=== PATIENT | male | born 1955 | race Two or more races ===

== ENCOUNTER 2023-01-16 14:22 | Inpatient (IN) | payer OTHER ==
[2023-01-16 15:37] LABS: BASO % 1.3 % (0-2.0); HEMATOCRIT 24.8 % (35.4-49); HEMOGLOBIN 8.1 GM/dL (11.7-16.9); LYMPH % 9.6 % (8-40); MCHC 32.7 g/dl (32.0-35.9); MEAN CELL VOLUME 91.9 fl (80-96); MEAN PLT VOLUME 7.1 fl (7.5-11.1); MONO % 7.4 % (3.8-10.2); NEUT % 78.7 % (42.8-82.8); PLATELET COUNT 257 10^3/uL (134-434); RBC 2.69 M/mm3 (4.00-5.60); RDW 16.8 % (11.9-15.9); WHITE BLOOD COUNT 5.9 K/mm3 (4.0-10.0)
[2023-01-16 15:44] LABS: INR 1.24 (0.83-1.09); PROTHROMBIN TIME (PATIENT) 14.3 SEC (9.7-13.0)
[2023-01-16 15:47] LABS: ACTIVATED PTT 36.3 SECONDS (25.2-36.5)
[2023-01-16 15:48] LABS: CHLORIDE 99 mmol/L (98-107); SODIUM 134 mmol/L (136-145)
[2023-01-16 15:50] LABS: CALCIUM 8.7 mg/dL (8.5-10.1)
[2023-01-16 15:51] LABS: ALBUMIN 3.2 g/dl (3.4-5.0); CO2 24 mmol/L (21-32); GLUCOSE,RANDOM 126 mg/dL (74-106); LIPASE 90 U/L (73-393); MAGNESIUM 2.6 mg/dL (1.8-2.4)
[2023-01-16 15:54] LABS: PHOSPHOROUS 2.8 mg/dL (2.5-4.9); SGOT/AST 14 U/L (15-37); SGPT/ALT 23 U/L (13-61)
[2023-01-16 15:55] LABS: BILIRUBIN,TOTAL 0.4 mg/dL (0.2-1)
[2023-01-16 15:56] LABS: TOT PROT 6.8 g/dl (6.4-8.2)
[2023-01-16 15:57] LABS: ALK PHOS 138 U/L (45-117)
[2023-01-16 15:58] LABS: ANION GAP 11 mmol/L (4-13); CREATININE 11.1 mg/dL (0.55-1.3); POTASSIUM 6.5 mmol/L (3.5-5.1)
[2023-01-16] MEDS ORDERED: CALCIUM GLUCONATE 10% - 1,000 MG/10 ML VIAL IVPB ONE (16:28)
[2023-01-16] MEDS ORDERED: INSULIN REGULAR HUMAN 100 UNITS/ML *VIAL IVPUSH ONE (16:29)
[2023-01-16] MEDS ORDERED: DEXTROSE 50%-WATER - 25 GM/50 ML VIAL IVPUSH ONE (16:30)
[2023-01-16] MEDS ORDERED: ALBUTEROL SULFATE 0.021% (0.63 MG/3 ML) VIAL.NEB NEB ONE (16:31)
[2023-01-16] MEDS ORDERED: SODIUM ZIRCONIUM CYCLOSILICATE (LOKELMA) 5 GM PACKET PO ONE (16:31)
[2023-01-16] MEDS ORDERED: SODIUM ZIRCONIUM CYCLOSILICATE (LOKELMA) 10 GM PACKET ONE (16:36)
[2023-01-16] MEDS ORDERED: DEXTROSE 50%-WATER 25 GM/50 ML DISP.SYRIN ONE (16:36)
[2023-01-16] MEDS ORDERED: CALCIUM GLUCONATE 10% - 1,000 MG/10 ML VIAL ONE (16:36)
[2023-01-16] MEDS ORDERED: INSULIN REGULAR HUMAN 100 UNITS/ML *VIAL ONE (16:39)
[2023-01-16] MEDS ORDERED: ALBUTEROL SO4 0.083% IH SOL 2.5 MG/3 ML VIAL.NEB. NEB ONE (17:32)
[2023-01-16] MEDS ORDERED: SODIUM CHLORIDE 250 ML IV PRN (18:03)
[2023-01-16 19:08] LABS: CHLORIDE 99 mmol/L (98-107); SODIUM 132 mmol/L (136-145)
[2023-01-16 19:10] LABS: BLOOD UREA NITROGEN 95.2 mg/dL (7-18); CALCIUM 8.7 mg/dL (8.5-10.1); CO2 24 mmol/L (21-32); GLUCOSE,RANDOM 153 mg/dL (74-106)
[2023-01-16 19:16] LABS: ANION GAP 8 mmol/L (4-13); CREATININE 11.4 mg/dL (0.55-1.3); POTASSIUM 6.5 mmol/L (3.5-5.1)
[2023-01-16] MEDS ORDERED: ALBUTEROL SO4 2.5/IPRATROPIUM 0.5 INH SOL 3 ML VIAL.NEB. NEB ONE (20:24)
[2023-01-16] MEDS ORDERED: ATORVASTATIN CA 40 MG TABLET (FP) PO SCH (23:16)
[2023-01-16] MEDS ORDERED: amLODIPine BESYLATE 10 MG TABLET (FP) PO SCH (23:16)
[2023-01-16] MEDS ORDERED: BISACODYL 10 MG SUPP.RECT PR PRN (23:30)
[2023-01-16] MEDS ORDERED: MAGNESIUM HYDROX 2400MG/30ML ORAL SUSPENSION 30 ML CUP PO PRN (23:35)
[2023-01-16] MEDS ORDERED: SENNOSIDES 8.6MG TABLET (FP) PO PRN (23:35)
[2023-01-16] MEDS: hydrALAZINE HCL 25 MG TABLET (FP) PO SCH (23:55)
[2023-01-16] MEDS: CARVEDILOL 12.5 MG TABLET (FP) PO SCH (23:55)
[2023-01-17] MEDS ORDERED: TORSEMIDE 20 MG TABLET (FP) PO SCH (06:00)
[2023-01-17] MEDS ORDERED: DOCUSATE SODIUM 100 MG CAPSULE (FP) PO SCH (06:00)
[2023-01-17 07:03] LABS: BASO % 1.1 % (0-2.0); EOS % 3.2 % (0-4.5); HEMATOCRIT 22.7 % (35.4-49); HEMOGLOBIN 7.6 GM/dL (11.7-16.9); LYMPH % 11.9 % (8-40); MCH 30.5 pg (25.7-33.7); MCHC 33.5 g/dl (32.0-35.9); MEAN CELL VOLUME 91.3 fl (80-96); MEAN PLT VOLUME 7.1 fl (7.5-11.1); MONO % 9.3 % (3.8-10.2); NEUT % 74.5 % (42.8-82.8); PLATELET COUNT 199 10^3/uL (134-434); RBC 2.49 M/mm3 (4.00-5.60); RDW 16.7 % (11.9-15.9); WHITE BLOOD COUNT 4.3 K/mm3 (4.0-10.0)
[2023-01-17 07:18] LABS: POTASSIUM 4.8 mmol/L (3.5-5.1)
[2023-01-17 07:20] LABS: CALCIUM 8.2 mg/dL (8.5-10.1)
[2023-01-17 07:25] LABS: BILIRUBIN,TOTAL 0.4 mg/dL (0.2-1)
[2023-01-17 07:26] LABS: CREATININE 6.8 mg/dL (0.55-1.3); TOT PROT 6.2 g/dl (6.4-8.2)
[2023-01-17 07:36] LABS: BLOOD UREA NITROGEN 44.2 mg/dL (7-18)
[2023-01-17] MEDS: CALCIUM ACETATE 667 MG CAPSULE (FP) PO SCH ×2 (08:17→11:25)
[2023-01-17 08:43] VITALS: BP 152/68; PULSE 67; RESP 18; TEMP 97.8
[2023-01-17] MEDS: hydrALAZINE HCL 25 MG TABLET (FP) PO SCH (09:05)
[2023-01-17] MEDS: CARVEDILOL 12.5 MG TABLET (FP) PO SCH (09:10)
[2023-01-17] MEDS ORDERED: ISOSORBIDE MONONITRATE 30 MG TAB.SR.24H (FP) PO SCH (10:00)
[2023-01-17 12:20] VITALS: BMI 27.3
[2023-01-17] MEDS ORDERED: SODIUM CHLORIDE 250 ML IV PRN (12:22)
[2023-01-18] MEDS ORDERED: EPOETIN ALFA-EPBX 10,000 UNIT/ML VIAL SQ ONE (12:22)
== END 2023-01-17 12:54 | DRG 640 ==
LOC: JER 14:22 → JERBED 16:55 → J4W 22:04
PROVIDERS: ADMIT Internal Medicine; ATTEND Family Medicine
PROC: 5A1D70Z Performance of Urinary Filtration, Intermittent, Less than 6 Hours Per Day (ICD-10-PCS; principal; 2023-01-16)
DX: E87.5 Hyperkalemia (principal); N18.6 End stage renal disease; I13.2 Hypertensive heart and chronic kidney disease with heart failure and with stage 5 chronic kidney disease, or end stage renal disease; E78.5 Hyperlipidemia, unspecified; E11.22 Type 2 diabetes mellitus with diabetic chronic kidney disease; I50.9 Heart failure, unspecified; Z99.2 Dependence on renal dialysis
CPT/HCPCS: 0241U-QW; 36415; 71045-TC-FY; 80048; 80053; 82962; 83690; 83735; 84100; 84484; 85025; 85610; 85730; 86704; 86705; 86803; 87340; 87517; 93005; 93010; 99285-25

== ENCOUNTER 2023-11-14 15:10 | Inpatient (IN) | payer OTHER ==
[2023-11-14 16:05] LABS: VENOUS BASE EXCESS -1.9 mmol/L (-2-2); VENOUS O2 SATURATION 71.7 % (70-80); VENOUS PCO2 40.4 mmHg (38-52); VENOUS PH 7.376 (7.310-7.410)
[2023-11-14 16:10] LABS: BASO % 0.5 % (0-2.0); HEMATOCRIT 31.9 % (35.4-49); HEMOGLOBIN 10.5 GM/dL (11.7-16.9); LYMPH % 9.6 % (8-40); MCH 32.8 pg (25.7-33.7); MCHC 32.8 g/dl (32.0-35.9); MEAN CELL VOLUME 99.8 fl (80-96); MEAN PLT VOLUME 8.3 fl (7.5-11.1); MONO % 6.7 % (3.8-10.2); NEUT % 83.2 % (42.8-82.8); PLATELET COUNT 168 10^3/uL (134-434); RDW 13.3 % (11.9-15.9); WHITE BLOOD COUNT 3.3 K/mm3 (4.0-10.0)
[2023-11-14 16:16] LABS: INR 1.18 (0.83-1.09); PROTHROMBIN TIME (PATIENT) 13.3 SEC (9.7-13.0)
[2023-11-14] MEDS ORDERED: PIPERACILLIN/TAZOB 2.25 GM 2.25 GM/50 ML BAG IVPB ONE (16:17)
[2023-11-14] MEDS ORDERED: VANCOMYCIN 1 GRAM (PRE-DOCKED) 1,000 MG/250 ML BAG IVPB ONE (16:17)
[2023-11-14 16:18] LABS: ACTIVATED PTT 29.2 SECONDS (25.2-36.5)
[2023-11-14 16:28] LABS: CHLORIDE 105 mmol/L (98-107); POTASSIUM 4.8 mmol/L (3.5-5.1); SODIUM 139 mmol/L (136-145)
[2023-11-14 16:30] LABS: CALCIUM 8.2 mg/dL (8.5-10.1)
[2023-11-14 16:31] LABS: ANION GAP 13 mmol/L (4-13); BLOOD UREA NITROGEN 70.8 mg/dL (7-18); CO2 21 mmol/L (21-32); GLUCOSE,RANDOM 109 mg/dL (74-106)
[2023-11-14 16:34] LABS: SGOT/AST 23 U/L (15-37); SGPT/ALT 28 U/L (13-61)
[2023-11-14 16:36] LABS: BILIRUBIN,TOTAL 0.6 mg/dL (0.2-1); TOT PROT 6.3 g/dl (6.4-8.2)
[2023-11-14 16:37] LABS: ALK PHOS 107 U/L (45-117)
[2023-11-14] MEDS: PIPERACILLIN/TAZOB 2.25 GM 2.25 GM in DEXTROSE 5%-WATER - 50 ML IVPB ONE (16:58)
[2023-11-14] MEDS ORDERED: ACETAMINOPHEN INJECTION 100 ML ONE ×2 (17:00→22:43)
[2023-11-14 17:04] LABS: EPI CELLS 26 /uL (0-25.1); HYALINE CASTS 1 /uL (0-3.1); PH,URINE 7.5 (5.0-8.0); URINE APPEARANCE CLEAR; URINE BACTERIA 8 /uL (0-1359); URINE BILIRUBIN NEGATIVE (NEGATIVE); URINE COLOR YELLOW; URINE GLUCOSE (UA) 2+ (NEGATIVE); URINE KETONE NEGATIVE (NEGATIVE); URINE LEUK ESTERASE NEGATIVE (NEGATIVE); URINE NITRITE NEGATIVE (NEGATIVE); URINE PROTEIN 4+ (NEGATIVE); URINE RBC 466 /uL (0-23.9); URINE UROBILINOGEN 0.2 mg/dL (0.2-1.0); URINE WBC 13 /uL (0-25.8)
[2023-11-14] MEDS: VANCOMYCIN 1,000 MG in DEXTROSE 5%-WATER - 250 ML IVPB ONE (17:08)
[2023-11-14] MEDS: ACETAMINOPHEN 1000 MG/100 ML BAG IVPB ONE ×2 (17:08→22:55)
[2023-11-14] MEDS ORDERED: PIPERACILLIN/TAZOB 2.25 GM 2.25 GM in DEXTROSE 5%-WATER - 50 ML IVPB SCH (22:00)
[2023-11-14] MEDS ORDERED: ACETAMINOPHEN 500 MG TABLET (FP) PO ONE (22:42)
[2023-11-14] MEDS ORDERED: LIDOCAINE 5% TOPICAL PATCH ONE (22:43)
[2023-11-14] MEDS: LIDOCAINE 5% TOPICAL PATCH TP ONE (22:55)
[2023-11-14] MEDS: LIDOCAINE 4% PATCH TP ONE (23:20)
[2023-11-14] MEDS: LIDOCAINE PATCH REMOVAL MC SCH ×2 (23:50)
[2023-11-15] MEDS: PIPERACILLIN/TAZOB 2.25 GM 2.25 GM in DEXTROSE 5%-WATER - 50 ML IVPB SCH ×2 (06:48→14:13)
[2023-11-15] MEDS: HEPARIN NA (PORCINE) 5,000 UNITS/ML 1ML VIAL SQ SCH (06:48)
[2023-11-15] MEDS: INSULIN ASPART SLIDING SCALE (NOVOLOG) 1 VIAL SQ SCH (06:49)
[2023-11-15 09:51] LABS: BASO % 0.2 % (0-2.0); EOS % 0.5 % (0-4.5); HEMATOCRIT 29.8 % (35.4-49); HEMOGLOBIN 9.9 GM/dL (11.7-16.9); LYMPH % 13.4 % (8-40); MCHC 33.1 g/dl (32.0-35.9); MEAN CELL VOLUME 99.8 fl (80-96); MEAN PLT VOLUME 8.5 fl (7.5-11.1); MONO % 9.1 % (3.8-10.2); NEUT % 76.8 % (42.8-82.8); PLATELET COUNT 137 10^3/uL (134-434); RBC 2.99 M/mm3 (4.00-5.60); RDW 13.7 % (11.9-15.9); WHITE BLOOD COUNT 2.4 K/mm3 (4.0-10.0)
[2023-11-15] MEDS: PANTOPRAZOLE SODIUM 40 MG VIAL IVPUSH SCH (10:10)
[2023-11-15 11:00] LABS: ALBUMIN 2.7 g/dl (3.4-5.0); ALK PHOS 84 U/L (45-117); ANION GAP 14 mmol/L (4-13); BILIRUBIN,TOTAL 0.5 mg/dL (0.2-1); BLOOD UREA NITROGEN 84.3 mg/dL (7-18); CALCIUM 8.2 mg/dL (8.5-10.1); CHLORIDE 102 mmol/L (98-107); CO2 22 mmol/L (21-32); CREATININE 8.9 mg/dL (0.55-1.3); GLUCOSE,RANDOM 86 mg/dL (74-106); MAGNESIUM 2.1 mg/dL (1.8-2.4); PHOSPHOROUS 2.2 mg/dL (2.5-4.9); SGOT/AST 24 U/L (15-37); SGPT/ALT 28 U/L (13-61); SODIUM 137 mmol/L (136-145); TOT PROT 6.1 g/dl (6.4-8.2)
[2023-11-15 11:11] VITALS: BMI 22.5
[2023-11-15 11:32] LABS: ANISOCYTOSIS 1+; MACROCYTOSIS 0
[2023-11-15] MEDS ORDERED: SODIUM CHLORIDE 250 ML IV PRN (13:00)
[2023-11-15] MEDS: EPOETIN ALFA-EPBX 4,000 UNIT/ML VIAL IVPUSH ONE (13:11)
[2023-11-15] MEDS: ACETAMINOPHEN 1000 MG/100 ML BAG IVPB ONE (13:26)
[2023-11-15] MEDS: methylPREDNISolone NA SUCC 1000 MG/8 ML VIAL IVPB SCH (14:13)
[2023-11-15] MEDS: diphenhydrAMINE HCL 25 MG CAPSULE (FP) PO ONE (15:18)
[2023-11-15] MEDS ORDERED: ALBUTEROL SO4 0.083% IH SOL 2.5 MG/3 ML VIAL.NEB. NEB PRN (16:29)
[2023-11-15] MEDS ORDERED: MAGNESIUM HYDROX 2400MG/30ML ORAL SUSPENSION 30 ML CUP PO PRN (16:29)
[2023-11-15] MEDS: methylPREDNISolone NA SUCC 40 MG/1 ML VIAL IVPB SCH (18:57)
[2023-11-15] MEDS ORDERED: AMIODARONE HCL 150 MG/3 ML VIAL ONE (19:27)
[2023-11-15] MEDS ORDERED: HEPARIN NA (PORCINE) 5,000 UNITS/ML 1ML VIAL IVPUSH PRN ×3 (19:28→19:36)
[2023-11-15] MEDS: AMIODARONE HCL INJECTION 150 MG in DEXTROSE 5%-WATER - 100 ML IVPB ONE (19:53)
[2023-11-15] MEDS: AMIODARONE IN DEXTROSE,ISO-OSM 360 MG/200 ML BAG IV ONE (19:54)
[2023-11-15] MEDS: HEPARIN NA (PORCINE) 5,000 UNITS/ML 1ML VIAL IVPUSH ONE (19:57)
[2023-11-15] MEDS: HEPARIN - 25,000 UNIT in SODIUM CHLORIDE 495 ML IV SCH (20:24)
[2023-11-15] MEDS: DOCUSATE SODIUM 100 MG CAPSULE (FP) PO SCH (21:11)
[2023-11-15] MEDS: ATORVASTATIN CA 40 MG TABLET (FP) PO SCH (21:12)
[2023-11-15] MEDS: SENNOSIDES 8.6MG TABLET (FP) PO SCH (21:12)
[2023-11-15] MEDS ORDERED: DOCUSATE SODIUM 100 MG PO SCH (22:00)
[2023-11-15 22:19] LABS: LACTIC ACID 2.3 mmol/L (0.4-2.0)
[2023-11-16] MEDS: AMIODARONE IN DEXTROSE,ISO-OSM 360 MG/200 ML BAG IV SCH (01:59)
[2023-11-16 07:23] LABS: HEMATOCRIT 25.4 % (35.4-49); HEMOGLOBIN 8.5 GM/dL (11.7-16.9); MCH 33.1 pg (25.7-33.7); MCHC 33.5 g/dl (32.0-35.9); MEAN CELL VOLUME 98.8 fl (80-96); PLATELET COUNT 140 10^3/uL (134-434); RBC 2.57 M/mm3 (4.00-5.60); RDW 13.6 % (11.9-15.9); WHITE BLOOD COUNT 7.7 K/mm3 (4.0-10.0)
[2023-11-16 07:39] LABS: POTASSIUM 5.5 mmol/L (3.5-5.1)
[2023-11-16 07:44] LABS: ALBUMIN 2.4 g/dl (3.4-5.0); CALCIUM 8.1 mg/dL (8.5-10.1)
[2023-11-16 07:45] LABS: MAGNESIUM 2.1 mg/dL (1.8-2.4)
[2023-11-16 07:48] LABS: CREATININE 6.3 mg/dL (0.55-1.3); PHOSPHOROUS 3.9 mg/dL (2.5-4.9)
[2023-11-16 07:49] LABS: BILIRUBIN,TOTAL 0.6 mg/dL (0.2-1); TOT PROT 5.6 g/dl (6.4-8.2)
[2023-11-16] MEDS: HEPARIN NA (PORCINE) 5,000 UNITS/ML 1ML VIAL IVPUSH PRN (08:31)
[2023-11-16] MEDS: SERTRALINE HCL 50 MG TABLET (FP) PO SCH (10:03)
[2023-11-16] MEDS: MEMANTINE HCL 10 MG TABLET (FP) PO SCH (10:04)
[2023-11-16] MEDS: EPOETIN ALFA-EPBX 4,000 UNIT/ML VIAL IVPUSH ONE (15:32)
[2023-11-16] MEDS ORDERED: SODIUM CHLORIDE 250 ML IV PRN (16:00)
[2023-11-16] MEDS: NOREPINEPHRINE 0.9 % NACL 8 MG/250 ML BAG IVPB SCH (20:06)
[2023-11-17] MEDS ORDERED: AMIODARONE HCL 200 MG TABLET PO SCH (06:45)
[2023-11-17 06:52] LABS: POTASSIUM 3.8 mmol/L (3.5-5.1)
[2023-11-17 06:54] LABS: HEMATOCRIT 25.9 % (35.4-49); HEMOGLOBIN 8.7 GM/dL (11.7-16.9); MCH 33.4 pg (25.7-33.7); MCHC 33.7 g/dl (32.0-35.9); MEAN PLT VOLUME 8.8 fl (7.5-11.1); PLATELET COUNT 149 10^3/uL (134-434); RBC 2.61 M/mm3 (4.00-5.60); RDW 13.5 % (11.9-15.9); WHITE BLOOD COUNT 9.6 K/mm3 (4.0-10.0)
[2023-11-17 07:00] LABS: ALBUMIN 2.2 g/dl (3.4-5.0); CALCIUM 7.9 mg/dL (8.5-10.1)
[2023-11-17 07:03] LABS: CREATININE 3.8 mg/dL (0.55-1.3)
[2023-11-17 07:05] LABS: BILIRUBIN,TOTAL 0.6 mg/dL (0.2-1); TOT PROT 5.6 g/dl (6.4-8.2)
[2023-11-17 07:20] LABS: BLOOD UREA NITROGEN 41.8 mg/dL (7-18)
[2023-11-17 09:48] LABS: ANISOCYTOSIS 0; MACROCYTOSIS 0
[2023-11-17] MEDS: LIDOCAINE 4% PATCH TP SCH (10:17)
[2023-11-17] MEDS: AMIODARONE HCL 200 MG TABLET PO SCH (12:24)
[2023-11-17] MEDS: AMIODARONE HCL 100 MG TABLET PO SCH (14:16)
[2023-11-17] MEDS ORDERED: INSULIN REGULAR HUMAN 100 UNITS/ML *VIAL ONE (15:55)
[2023-11-17 17:30] LABS: ALBUMIN 2.4 g/dl (3.4-5.0); BLOOD UREA NITROGEN 53.6 mg/dL (7-18)
[2023-11-17 17:33] LABS: CREATININE 4.4 mg/dL (0.55-1.3)
[2023-11-17 17:36] LABS: BILIRUBIN,TOTAL 0.6 mg/dL (0.2-1); TOT PROT 5.9 g/dl (6.4-8.2)
[2023-11-17] MEDS: LIDOCAINE PATCH REMOVAL MC SCH (21:32)
[2023-11-17] MEDS: MELATONIN 5 MG TABLETS PO SCH (21:51)
[2023-11-18] MEDS ORDERED: SODIUM CHLORIDE 250 ML IV PRN (07:46)
[2023-11-18 07:50] LABS: HEMATOCRIT 25.8 % (35.4-49); HEMOGLOBIN 8.7 GM/dL (11.7-16.9); MCH 33.1 pg (25.7-33.7); MCHC 33.8 g/dl (32.0-35.9); MEAN PLT VOLUME 8.5 fl (7.5-11.1); PLATELET COUNT 146 10^3/uL (134-434); RBC 2.63 M/mm3 (4.00-5.60); RDW 13.8 % (11.9-15.9); WHITE BLOOD COUNT 12.7 K/mm3 (4.0-10.0)
[2023-11-18 08:11] LABS: POTASSIUM 3.8 mmol/L (3.5-5.1)
[2023-11-18 08:12] LABS: ARTERIAL BLD GAS O2 SATURATION 69.4 % (95-98); ARTERIAL BLOOD GAS BASE EXCESS 1.4 mmol/L (-2-2); ARTERIAL BLOOD GAS pH 7.439 (7.350-7.450)
[2023-11-18 08:14] LABS: BLOOD UREA NITROGEN 67.2 mg/dL (7-18); CALCIUM 8.2 mg/dL (8.5-10.1); MAGNESIUM 2.2 mg/dL (1.8-2.4)
[2023-11-18 08:14] LABS: ALLENS TEST POSITIVE
[2023-11-18 08:15] LABS: ARTERIAL BLOOD GAS PO2 34.9 mmHg (80-100)
[2023-11-18 08:15] LABS: ALBUMIN 2.2 g/dl (3.4-5.0)
[2023-11-18 08:17] LABS: CREATININE 5.2 mg/dL (0.55-1.3)
[2023-11-18 08:19] LABS: BILIRUBIN,TOTAL 0.5 mg/dL (0.2-1); TOT PROT 5.7 g/dl (6.4-8.2)
[2023-11-18] MEDS: EPOETIN ALFA-EPBX 4,000 UNIT/ML VIAL IVPUSH ONE (09:07)
[2023-11-18 09:17] LABS: ANISOCYTOSIS 0; MACROCYTOSIS 0
[2023-11-18] MEDS: APIXABAN 2.5 MG TABLET PO SCH (13:02)
[2023-11-18] MEDS: CARVEDILOL 25 MG TABLET (FP) PO SCH (13:02)
[2023-11-18] MEDS ORDERED: ACETAMINOPHEN 325 MG TABLET (FP) PO PRN (23:12)
[2023-11-19] MEDS: ACETAMINOPHEN 325 MG TABLET (FP) PO PRN (06:30)
[2023-11-19 06:53] LABS: HEMATOCRIT 25.9 % (35.4-49); HEMOGLOBIN 8.5 GM/dL (11.7-16.9); MCH 32.7 pg (25.7-33.7); MCHC 32.9 g/dl (32.0-35.9); MEAN CELL VOLUME 99.5 fl (80-96); MEAN PLT VOLUME 8.3 fl (7.5-11.1); PLATELET COUNT 141 10^3/uL (134-434); RDW 13.8 % (11.9-15.9); WHITE BLOOD COUNT 11.7 K/mm3 (4.0-10.0)
[2023-11-19 07:09] LABS: POTASSIUM 3.6 mmol/L (3.5-5.1)
[2023-11-19 07:19] LABS: ALBUMIN 2.2 g/dl (3.4-5.0); CALCIUM 7.9 mg/dL (8.5-10.1)
[2023-11-19 07:20] LABS: BLOOD UREA NITROGEN 44.8 mg/dL (7-18)
[2023-11-19 07:24] LABS: TOT PROT 5.8 g/dl (6.4-8.2)
[2023-11-19 07:26] LABS: BILIRUBIN,TOTAL 0.4 mg/dL (0.2-1)
[2023-11-19 09:32] LABS: ANISOCYTOSIS 0; MACROCYTOSIS 0
[2023-11-19] MEDS ORDERED: NOREPINEPHRINE 0.9 % NACL 8 MG/250 ML BAG IVPB SCH (16:42)
[2023-11-19] MEDS ORDERED: MAGNESIUM HYDROX 2400MG/30ML ORAL SUSPENSION 30 ML CUP PO PRN (16:42)
[2023-11-19] MEDS ORDERED: ALBUTEROL SO4 0.083% IH SOL 2.5 MG/3 ML VIAL.NEB. NEB PRN (16:42)
[2023-11-19] MEDS: PIPERACILLIN/TAZOB 2.25 GM 2.25 GM in DEXTROSE 5%-WATER - 50 ML IVPB SCH (17:15)
[2023-11-19] MEDS: INSULIN ASPART SLIDING SCALE (NOVOLOG) 1 VIAL SQ SCH (17:27)
[2023-11-19] MEDS: CARVEDILOL 25 MG TABLET (FP) PO SCH (21:40)
[2023-11-19] MEDS: ATORVASTATIN CA 40 MG TABLET (FP) PO SCH (21:40)
[2023-11-19] MEDS: SENNOSIDES 8.6MG TABLET (FP) PO SCH (21:40)
[2023-11-19] MEDS: AMIODARONE HCL 200 MG TABLET PO SCH (21:40)
[2023-11-19] MEDS: MELATONIN 5 MG TABLETS PO SCH (21:41)
[2023-11-19] MEDS: LIDOCAINE PATCH REMOVAL MC SCH (21:41)
[2023-11-19] MEDS: APIXABAN 2.5 MG TABLET PO SCH (21:41)
[2023-11-20] MEDS: ACETAMINOPHEN 325 MG TABLET (FP) PO PRN (06:42)
[2023-11-20] MEDS ORDERED: INSULIN ASPART SLIDING SCALE (NOVOLOG) 1 VIAL SQ SCH (07:00)
[2023-11-20] MEDS ORDERED: SODIUM CHLORIDE 250 ML IV PRN (09:42)
[2023-11-20 11:21] LABS: HEMATOCRIT 27.1 % (35.4-49); MCH 32.7 pg (25.7-33.7); MCHC 33.1 g/dl (32.0-35.9); MEAN CELL VOLUME 98.7 fl (80-96); MEAN PLT VOLUME 9.3 fl (7.5-11.1); PLATELET COUNT 172 10^3/uL (134-434); RBC 2.75 M/mm3 (4.00-5.60); RDW 13.9 % (11.9-15.9); WHITE BLOOD COUNT 15.5 K/mm3 (4.0-10.0)
[2023-11-20 11:41] LABS: POTASSIUM 3.8 mmol/L (3.5-5.1)
[2023-11-20 11:49] LABS: ALBUMIN 2.2 g/dl (3.4-5.0)
[2023-11-20 11:51] LABS: BILIRUBIN,TOTAL 0.4 mg/dL (0.2-1); TOT PROT 5.7 g/dl (6.4-8.2)
[2023-11-20 11:52] LABS: CREATININE 5.4 mg/dL (0.55-1.3)
[2023-11-20 11:53] LABS: CALCIUM 8.2 mg/dL (8.5-10.1)
[2023-11-20 11:56] LABS: BLOOD UREA NITROGEN 80.2 mg/dL (7-18)
[2023-11-20] MEDS: EPOETIN ALFA-EPBX 4,000 UNIT/ML VIAL SQ ONE (13:26)
[2023-11-20] MEDS: methylPREDNISolone NA SUCC 40 MG/1 ML VIAL IVPB SCH (13:47)
[2023-11-20] MEDS: LIDOCAINE 4% PATCH TP SCH (13:48)
[2023-11-20] MEDS: PANTOPRAZOLE SODIUM 40 MG VIAL IVPUSH SCH (13:48)
[2023-11-20] MEDS: MEMANTINE HCL 10 MG TABLET (FP) PO SCH (13:51)
[2023-11-20] MEDS: SERTRALINE HCL 50 MG TABLET (FP) PO SCH (13:51)
[2023-11-20] MEDS: diphenhydrAMINE HCL 25 MG CAPSULE (FP) PO ONE (17:45)
[2023-11-20] MEDS ORDERED: PIPERACILLIN/TAZOBACTAM 2.25 GM VIAL IVPB ONE (19:30)
[2023-11-21] MEDS ORDERED: PIPERACILLIN/TAZOBACTAM 2.25 GM VIAL IVPB ONE (10:17)
[2023-11-21 10:19] LABS: HEMATOCRIT 26.8 % (35.4-49); HEMOGLOBIN 8.8 GM/dL (11.7-16.9); MCH 32.4 pg (25.7-33.7); MCHC 32.9 g/dl (32.0-35.9); MEAN CELL VOLUME 98.6 fl (80-96); MEAN PLT VOLUME 8.7 fl (7.5-11.1); PLATELET COUNT 210 10^3/uL (134-434); RBC 2.72 M/mm3 (4.00-5.60); RDW 14.1 % (11.9-15.9); WHITE BLOOD COUNT 17.3 K/mm3 (4.0-10.0)
[2023-11-21 11:14] LABS: POTASSIUM 3.4 mmol/L (3.5-5.1)
[2023-11-21 11:16] LABS: CALCIUM 8.2 mg/dL (8.5-10.1)
[2023-11-21 11:17] LABS: ALBUMIN 2.2 g/dl (3.4-5.0); MAGNESIUM 2.1 mg/dL (1.8-2.4)
[2023-11-21 11:19] LABS: CREATININE 4.5 mg/dL (0.55-1.3)
[2023-11-21 11:20] LABS: PHOSPHOROUS 2.6 mg/dL (2.5-4.9)
[2023-11-21 11:21] LABS: BILIRUBIN,TOTAL 0.4 mg/dL (0.2-1); TOT PROT 5.8 g/dl (6.4-8.2)
[2023-11-22] MEDS: POTASSIUM CHLORIDE ORAL LIQUID 20 MEQ/15 ML PO ONE (07:02)
[2023-11-22 09:44] LABS: HEMATOCRIT 27.4 % (35.4-49); HEMOGLOBIN 8.8 GM/dL (11.7-16.9); MEAN PLT VOLUME 8.4 fl (7.5-11.1); PLATELET COUNT 266 10^3/uL (134-434); RBC 2.74 M/mm3 (4.00-5.60); WHITE BLOOD COUNT 19.2 K/mm3 (4.0-10.0)
[2023-11-22] MEDS: AMIODARONE HCL 200 MG TABLET PO SCH (09:56)
[2023-11-22 10:15] LABS: CALCIUM 8.2 mg/dL (8.5-10.1)
[2023-11-22 10:20] LABS: CREATININE 5.8 mg/dL (0.55-1.3)
[2023-11-22] MEDS ORDERED: SODIUM CHLORIDE 250 ML IV PRN (11:12)
[2023-11-22] MEDS: EPOETIN ALFA-EPBX 4,000 UNIT/ML VIAL IVPUSH ONE (17:51)
[2023-11-23] MEDS: INSULIN (LEVEMIR) 100 UNITS/ML UNITS SQ SCH (09:21)
[2023-11-23] MEDS: predniSONE 20 MG TABLET (UD) PO SCH (09:47)
[2023-11-23] MEDS ORDERED: predniSONE 10 MG, predniSONE 40 MG PO SCH (10:00)
[2023-11-23] MEDS ORDERED: predniSONE 20 MG TABLET (UD) PO SCH (10:00)
[2023-11-24 07:14] LABS: HEMATOCRIT 25.7 % (35.4-49); HEMOGLOBIN 8.2 GM/dL (11.7-16.9); MCH 31.7 pg (25.7-33.7); MCHC 31.8 g/dl (32.0-35.9); MEAN CELL VOLUME 99.6 fl (80-96); MEAN PLT VOLUME 7.9 fl (7.5-11.1); PLATELET COUNT 338 10^3/uL (134-434); RBC 2.58 M/mm3 (4.00-5.60); RDW 14.2 % (11.9-15.9); WHITE BLOOD COUNT 16.9 K/mm3 (4.0-10.0)
[2023-11-24 07:39] LABS: POTASSIUM 4.2 mmol/L (3.5-5.1)
[2023-11-24 07:44] LABS: BLOOD UREA NITROGEN 77.2 mg/dL (7-18); CALCIUM 7.7 mg/dL (8.5-10.1)
[2023-11-24 07:47] LABS: CREATININE 5.3 mg/dL (0.55-1.3)
[2023-11-24 09:22] LABS: ANISOCYTOSIS 0; HELMET CELLS 0; HOWELL-JOLLY BODIES 0; MACROCYTOSIS 0; OVALOCYTE 0; ROULEAU 0; SICKELED CELLS 0; TARGET CELLS 0; TEAR DROP CELLS 0; TOXIC GRANULATION 0
[2023-11-24] MEDS: diphenhydrAMINE HCL 25 MG CAPSULE (FP) PO ONE ×2 (12:21→22:28)
[2023-11-25] MEDS ORDERED: SODIUM CHLORIDE 250 ML IV PRN (00:13)
[2023-11-25] MEDS ORDERED: INSULIN (LEVEMIR) 100 UNITS/ML UNITS SQ ONE (06:35)
[2023-11-25] MEDS ORDERED: INSULIN ASPART SLIDING SCALE (NOVOLOG) 1 VIAL SQ ONE (06:36)
[2023-11-25 22:03] VITALS: RESP 17
[2023-11-26] MEDS ORDERED: INSULIN ASPART SLIDING SCALE (NOVOLOG) 1 VIAL SQ ONE (06:59)
[2023-11-26] MEDS ORDERED: INSULIN (LEVEMIR) 100 UNITS/ML UNITS SQ ONE (06:59)
[2023-11-26 07:17] VITALS: BP 154/73; PULSE 51; TEMP 98.4
== END 2023-11-26 09:07 | DRG 871 ==
LOC: JER 15:10 → JERBED 15:55 → JICU 23:22 → J4S 11-19 15:56
PROVIDERS: ADMIT Internal Medicine Pulmonary Disease; ATTEND Internal Medicine
PROC: 05HB33Z Insertion of Infusion Device into Right Basilic Vein, Percutaneous Approach (ICD-10-PCS; principal; 2023-11-15)
PROC: B54MZZA Ultrasonography of Right Upper Extremity Veins, Guidance (ICD-10-PCS; 2023-11-15)
PROC: 5A1D70Z Performance of Urinary Filtration, Intermittent, Less than 6 Hours Per Day (ICD-10-PCS; 2023-11-15)
PROC: 5A1D70Z Performance of Urinary Filtration, Intermittent, Less than 6 Hours Per Day (ICD-10-PCS; 2023-11-16)
PROC: 5A1D70Z Performance of Urinary Filtration, Intermittent, Less than 6 Hours Per Day (ICD-10-PCS; 2023-11-18)
PROC: 5A1D70Z Performance of Urinary Filtration, Intermittent, Less than 6 Hours Per Day (ICD-10-PCS; 2023-11-20)
PROC: 5A1D70Z Performance of Urinary Filtration, Intermittent, Less than 6 Hours Per Day (ICD-10-PCS; 2023-11-22)
PROC: 5A1D70Z Performance of Urinary Filtration, Intermittent, Less than 6 Hours Per Day (ICD-10-PCS; 2023-11-25)
DX: A41.50 Gram-negative sepsis, unspecified (principal); J18.9 Pneumonia, unspecified organism; J96.01 Acute respiratory failure with hypoxia; R65.21 Severe sepsis with septic shock; N18.6 End stage renal disease; I13.2 Hypertensive heart and chronic kidney disease with heart failure and with stage 5 chronic kidney disease, or end stage renal disease; E87.20 Acidosis, unspecified; E78.5 Hyperlipidemia, unspecified; D72.829 Elevated white blood cell count, unspecified; K59.00 Constipation, unspecified; I48.0 Paroxysmal atrial fibrillation; F03.90 Unspecified dementia, unspecified severity, without behavioral disturbance, psychotic disturbance, mood disturbance, and anxiety; E11.22 Type 2 diabetes mellitus with diabetic chronic kidney disease; I50.9 Heart failure, unspecified; D72.819 Decreased white blood cell count, unspecified; R79.89 Other specified abnormal findings of blood chemistry; D64.9 Anemia, unspecified; E11.65 Type 2 diabetes mellitus with hyperglycemia; Z99.2 Dependence on renal dialysis
CPT/HCPCS: 0241U-QW; 36415; 36600; 71045-TC-FY; 71250-TC; 74176-TC; 80048; 80053; 81003; 82803; 82962; 83605; 83735; 83880; 84100; 84484; 85025; 85027; 85520; 85610; 85730; 86803; 86850; 86900; 86901; 87040; 87086; 87186; 87340; 93005; 93010; 93306-TC; 99291; J0131; J1644; Q5106

== ENCOUNTER 2024-07-23 09:26 | Inpatient (IN) | payer OTHER ==
[2024-07-23 09:50] VITALS: BMI 25.8
[2024-07-23] MEDS ORDERED: ACETAMINOPHEN INJECTION 100 ML ONE (10:57)
[2024-07-23 11:01] LABS: ABSOLUTE IMMATURE GRANULOCYTES 0.01 x10^3/uL (0.0-0.031); BASOPHILS # 0.03 x10^3/uL (0.01-0.08); EOSINOPHIL % 1.1 % (0.8-7.0); EOSINOPHILS # 0.06 x10^3/uL (0.04-0.54); HEMATOCRIT 44.7 % (40.1-51.0); HEMOGLOBIN 14.7 g/dL (13.7-17.5); MCHC 32.9 g/dl (32.3-36.5); MEAN PLT VOLUME 9.5 fl (9.4-12.4); MONOCYTE # 0.65 x10^3/uL (0.30-0.82); MONOCYTE % 12.4 % (5.3-12.2); PLATELET COUNT 227 x10^3/uL (163-337); RDW 13.2 % (12.2-16.4)
[2024-07-23 11:08] LABS: INR 1.39 (0.83-1.09); PROTHROMBIN TIME (PATIENT) 15.1 SEC (9.7-13.0)
[2024-07-23 11:11] LABS: ACTIVATED PTT 39.7 SECONDS (25.2-36.5)
[2024-07-23] MEDS: ACETAMINOPHEN 1000 MG/100 ML BAG IVPB ONE (11:15)
[2024-07-23 11:20] LABS: CHLORIDE 88 mmol/L (98-107); SODIUM 142 mmol/L (136-145)
[2024-07-23 11:22] LABS: CALCIUM 8.4 mg/dL (8.5-10.1)
[2024-07-23 11:23] LABS: ALBUMIN 3.7 g/dl (3.4-5.0); BLOOD UREA NITROGEN 77.4 mg/dL (7-18); GLUCOSE,RANDOM 154 mg/dL (74-106); MAGNESIUM 2.6 mg/dL (1.8-2.4)
[2024-07-23 11:24] LABS: ANION GAP 9 mmol/L (4-13); CO2 > 45 mmol/L (21-32)
[2024-07-23 11:26] LABS: SGOT/AST 31 U/L (15-37); SGPT/ALT 35 U/L (13-61)
[2024-07-23 11:27] LABS: BILIRUBIN,TOTAL 0.4 mg/dL (0.2-1); TOT PROT 7.2 g/dl (6.4-8.2)
[2024-07-23 11:28] LABS: ALK PHOS 107 U/L (45-117); CREATININE 8.2 mg/dL (0.55-1.3)
[2024-07-23] MEDS ORDERED: ACETAMINOPHEN 1000 MG/100 ML BAG IVPB PRN (13:12)
[2024-07-23 13:23] LABS: VENOUS BASE EXCESS 17.5 mmol/L (-2-2); VENOUS O2 SATURATION 86.4 % (70-80); VENOUS PCO2 53.5 mmHg (38-52); VENOUS PH 7.526 (7.310-7.410)
[2024-07-23 13:48] LABS: CHLORIDE 89 mmol/L (98-107); POTASSIUM 4.1 mmol/L (3.5-5.1); SODIUM 143 mmol/L (136-145)
[2024-07-23 13:50] LABS: ANION GAP 10 mmol/L (4-13); BLOOD UREA NITROGEN 76.5 mg/dL (7-18); CALCIUM 8.1 mg/dL (8.5-10.1); CO2 44 mmol/L (21-32); GLUCOSE,RANDOM 170 mg/dL (74-106)
[2024-07-23] MEDS: amLODIPine BESYLATE 10 MG TABLET (FP) PO SCH (15:12)
[2024-07-23] MEDS: hydrALAZINE HCL 25 MG TABLET (FP) PO SCH (15:12)
[2024-07-23] MEDS: hydrALAZINE HCL 50 MG TABLET (FP) PO SCH (15:12)
[2024-07-23] MEDS ORDERED: SODIUM CHLORIDE 250 ML IV PRN (16:47)
[2024-07-23 16:52] LABS: ARTERIAL BLD GAS O2 SATURATION 95.4 % (95-98); ARTERIAL BLOOD GAS BASE EXCESS 17.6 mmol/L (-2-2); ARTERIAL BLOOD GAS PO2 71.5 mmHg (80-100); ARTERIAL BLOOD GAS pH 7.514 (7.350-7.450); O2 CONTENT 2.03 % vol
[2024-07-23 16:55] LABS: ALLENS TEST POSITIVE
[2024-07-23 18:57] LABS: HEPATITIS B SURF AG NON-MATERN NON-REACTIVE (NONREACTIVE)
[2024-07-23] MEDS: SENNOSIDES 8.6MG TABLET (FP) PO SCH (21:17)
[2024-07-23] MEDS: ATORVASTATIN CA 40 MG TABLET (FP) PO SCH (21:17)
[2024-07-23] MEDS: APIXABAN 2.5 MG TABLET PO SCH (21:17)
[2024-07-24 08:29] LABS: BASOPHILS # 0.04 x10^3/uL (0.01-0.08); EOSINOPHIL % 2.6 % (0.8-7.0); EOSINOPHILS # 0.11 x10^3/uL (0.04-0.54); HEMATOCRIT 43.2 % (40.1-51.0); HEMOGLOBIN 13.5 g/dL (13.7-17.5); MCHC 31.3 g/dl (32.3-36.5); MEAN CELL VOLUME 107.7 fl (79.0-92.2); MEAN PLT VOLUME 9.7 fl (9.4-12.4); MONOCYTE # 0.47 x10^3/uL (0.30-0.82); MONOCYTE % 11.2 % (5.3-12.2); PLATELET COUNT 194 x10^3/uL (163-337); RDW 13.5 % (12.2-16.4)
[2024-07-24 08:50] LABS: POTASSIUM 4.7 mmol/L (3.5-5.1)
[2024-07-24 08:54] LABS: ALBUMIN 3.2 g/dl (3.4-5.0); CALCIUM 8.7 mg/dL (8.5-10.1)
[2024-07-24 08:57] LABS: CREATININE 5.7 mg/dL (0.55-1.3); PHOSPHOROUS 4.9 mg/dL (2.5-4.9)
[2024-07-24 08:59] LABS: BILIRUBIN,TOTAL 0.3 mg/dL (0.2-1); TOT PROT 6.5 g/dl (6.4-8.2)
[2024-07-24 09:09] LABS: BLOOD UREA NITROGEN 35.3 mg/dL (7-18)
[2024-07-24] MEDS: PANTOPRAZOLE 40 MG TABLET PO SCH (09:42)
[2024-07-24] MEDS: MEMANTINE HCL 10 MG TABLET (FP) PO SCH (09:43)
[2024-07-24] MEDS ORDERED: SODIUM CHLORIDE 250 ML IV PRN (18:14)
[2024-07-25 09:16] LABS: HEMATOCRIT 42.2 % (40.1-51.0); HEMOGLOBIN 13.4 g/dL (13.7-17.5); MCHC 31.8 g/dl (32.3-36.5); MEAN CELL VOLUME 106.8 fl (79.0-92.2); MEAN PLT VOLUME 10.3 fl (9.4-12.4); PLATELET COUNT 189 x10^3/uL (163-337); RDW 13.2 % (12.2-16.4)
[2024-07-25 10:42] LABS: CHLORIDE 98 mmol/L (98-107); POTASSIUM 5.1 mmol/L (3.5-5.1); SODIUM 140 mmol/L (136-145)
[2024-07-25 10:44] LABS: ALBUMIN 3.1 g/dl (3.4-5.0); ANION GAP 8 mmol/L (4-13); BLOOD UREA NITROGEN 53.8 mg/dL (7-18); CO2 33 mmol/L (21-32); GLUCOSE,RANDOM 114 mg/dL (74-106); MAGNESIUM 2.1 mg/dL (1.8-2.4)
[2024-07-25 10:48] LABS: PHOSPHOROUS 5.8 mg/dL (2.5-4.9); SGOT/AST 34 U/L (15-37); SGPT/ALT 31 U/L (13-61)
[2024-07-25 10:49] LABS: BILIRUBIN,TOTAL 0.3 mg/dL (0.2-1); TOT PROT 6.3 g/dl (6.4-8.2)
[2024-07-25 10:50] LABS: ALK PHOS 97 U/L (45-117)
[2024-07-25 10:53] LABS: CREATININE 7.9 mg/dL (0.55-1.3)
[2024-07-25] MEDS: ACETAMINOPHEN 325 MG TABLET (FP) PO PRN (13:48)
[2024-07-25] MEDS: diphenhydrAMINE HCL 25 MG CAPSULE (FP) PO ONE (13:48)
[2024-07-25] MEDS: INSULIN ASPART SLIDING SCALE (NOVOLOG) 1 VIAL SQ SCH (16:25)
[2024-07-27 11:21] LABS: HEMOGLOBIN 12.9 g/dL (13.7-17.5); MCHC 31.5 g/dl (32.3-36.5); MEAN CELL VOLUME 104.6 fl (79.0-92.2); MEAN PLT VOLUME 10.3 fl (9.4-12.4); PLATELET COUNT 163 x10^3/uL (163-337)
[2024-07-27 11:38] LABS: CHLORIDE 99 mmol/L (98-107); POTASSIUM 5.7 mmol/L (3.5-5.1); SODIUM 138 mmol/L (136-145)
[2024-07-27 11:42] LABS: ANION GAP 11 mmol/L (4-13); BLOOD UREA NITROGEN 68.5 mg/dL (7-18); CALCIUM 7.6 mg/dL (8.5-10.1); CO2 28 mmol/L (21-32); GLUCOSE,RANDOM 195 mg/dL (74-106); MAGNESIUM 2.1 mg/dL (1.8-2.4)
[2024-07-27 11:45] LABS: PHOSPHOROUS 6.6 mg/dL (2.5-4.9)
[2024-07-27] MEDS: SODIUM ZIRCONIUM CYCLOSILICATE (LOKELMA) 5 GM PACKET PO SCH ×2 (13:12→15:48)
[2024-07-27] MEDS ORDERED: EPOETIN ALFA-EPBX 3,000 UNIT/ML VIAL SQ ONE (20:43)
[2024-07-28] MEDS ORDERED: SODIUM CHLORIDE 250 ML IV PRN (09:39)
[2024-07-28 09:45] LABS: ABSOLUTE IMMATURE GRANULOCYTES 0.01 x10^3/uL (0.0-0.031); BASOPHILS # 0.04 x10^3/uL (0.01-0.08); EOSINOPHIL % 2.9 % (0.8-7.0); EOSINOPHILS # 0.12 x10^3/uL (0.04-0.54); HEMATOCRIT 38.1 % (40.1-51.0); HEMOGLOBIN 12.1 g/dL (13.7-17.5); MCHC 31.8 g/dl (32.3-36.5); MEAN CELL VOLUME 103.3 fl (79.0-92.2); MEAN PLT VOLUME 10.2 fl (9.4-12.4); MONOCYTE % 7.2 % (5.3-12.2); PLATELET COUNT 147 x10^3/uL (163-337); RDW 13.1 % (12.2-16.4)
[2024-07-28 10:03] LABS: CHLORIDE 97 mmol/L (98-107); POTASSIUM 5.6 mmol/L (3.5-5.1); SODIUM 137 mmol/L (136-145)
[2024-07-28 10:12] LABS: CALCIUM 7.8 mg/dL (8.5-10.1)
[2024-07-28 10:13] LABS: ANION GAP 11 mmol/L (4-13); CO2 29 mmol/L (21-32); GLUCOSE,RANDOM 164 mg/dL (74-106)
[2024-07-28 10:17] LABS: CREATININE 8.9 mg/dL (0.55-1.3)
[2024-07-28] MEDS: EPOETIN ALFA-EPBX 3,000 UNIT/ML VIAL SQ ONE (10:35)
[2024-07-28] MEDS: diphenhydrAMINE HCL 25 MG CAPSULE (FP) PO PRN (13:53)
[2024-07-29 11:22] VITALS: RESP 19
[2024-07-29] MEDS: diphenhydrAMINE HCL 25 MG CAPSULE (FP) PO PRN (12:03)
[2024-07-29 15:16] VITALS: BP 133/65; PULSE 64; TEMP 98.2
== END 2024-07-29 15:59 | DRG 551 ==
LOC: JER 09:26 → JERBED 11:49 → J5S 14:16 → INTOOBSV 07-25 14:19 → OBSVTOIN 07-25 14:19
PROVIDERS: ADMIT Internal Medicine; ATTEND Internal Medicine
PROC: 5A1D70Z Performance of Urinary Filtration, Intermittent, Less than 6 Hours Per Day (ICD-10-PCS; principal; 2024-07-23)
PROC: 5A1D70Z Performance of Urinary Filtration, Intermittent, Less than 6 Hours Per Day (ICD-10-PCS; 2024-07-23)
PROC: 5A1D70Z Performance of Urinary Filtration, Intermittent, Less than 6 Hours Per Day (ICD-10-PCS; 2024-07-28)
DX: M54.50 Low back pain, unspecified (principal); N18.6 End stage renal disease; I13.2 Hypertensive heart and chronic kidney disease with heart failure and with stage 5 chronic kidney disease, or end stage renal disease; I48.91 Unspecified atrial fibrillation; E78.5 Hyperlipidemia, unspecified; I25.10 Atherosclerotic heart disease of native coronary artery without angina pectoris; F03.90 Unspecified dementia, unspecified severity, without behavioral disturbance, psychotic disturbance, mood disturbance, and anxiety; A53.0 Latent syphilis, unspecified as early or late; F41.8 Other specified anxiety disorders; R26.9 Unspecified abnormalities of gait and mobility; E11.22 Type 2 diabetes mellitus with diabetic chronic kidney disease; I50.9 Heart failure, unspecified; Z99.2 Dependence on renal dialysis; G62.9 Polyneuropathy, unspecified; W18.30XA Fall on same level, unspecified, initial encounter; Y93.9 Activity, unspecified; Y92.128 Other place in nursing home as the place of occurrence of the external cause; Y99.9 Unspecified external cause status
CPT/HCPCS: 0241U-QW; 36415; 36600; 70450-TC; 71045-TC-FY; 72125-TC; 72131-TC; 72141-TC; 80048; 80053; 82108; 82140; 82607; 82803; 82962; 83605; 83735; 83880; 84100; 84439; 84443; 84484; 85025; 85027; 85610; 85730; 86593; 86705; 86780; 86803; 86850; 86900; 86901; 87340; 87517; 93005; 93010; 97116-GP; 97161-GP; 99285-25; G0378